=== PATIENT | male | born 1945 | race Caucasian/White ===

== ENCOUNTER 2016-12-14 17:09 | Inpatient (IN) ==
[2016-12-14] MEDS ORDERED: Mag Hydrox/Al Hydrox/Simeth 30 ML UDC PO PRN (20:25)
[2016-12-14] MEDS ORDERED: Bisacodyl 10 MG RECTAL SUPPOSITORY RC PRN (20:27)
[2016-12-14] MEDS ORDERED: traZODone 50 MG TABLET PO PRN (20:38)
[2016-12-14] MEDS ORDERED: Saline Nasal Spray 44 ML BOTTLE NS PRN (20:39)
[2016-12-14] MEDS ORDERED: Ondansetron ODT 4 MG TAB.RAPDIS PO PRN (20:43)
[2016-12-14] MEDS ORDERED: Isosorbide MONOnitrate (24 HR) 30 MG TAB.ER.24H PO SCH (21:00)
[2016-12-15] MEDS: *HR* Heparin 5,000 UNIT/ML VIAL SQ SCH ×4 (05:18→17:13)
[2016-12-15 06:14] LABS: Basophils % 0.6 %; Eosinophils # 0.3 K/mcL (0.0-0.6); Eosinophils % 5.8 %; Hematocrit 36.9 % (37.5-50.1); Hemoglobin 12.6 g/dL (12.9-16.9); Immature Granulocytes % 0.2 % (0-4); Lymphocytes # 2.3 K/mcL (0.6-4.6); Lymphocytes % 48.6 %; Mean Corpuscular HGB Conc 34.1 g/dL (31.6-35.5); Mean Corpuscular Hemoglobin 30.9 pg (28.0-33.3); Mean Corpuscular Volume 90.4 fL (83.0-100.0); Mean Platelet Volume 12.3 fL (9.4-12.4); Monocytes # 0.5 K/mcL (0.0-1.3); Monocytes % 11.5 %; Neutrophils # 1.6 K/mcL (1.6-8.9); Platelet Count 173 K/mcL (140-400); Red Blood Count 4.08 M/mcL (4.19-5.50); Segmented Neutrophils % 33.3 %
[2016-12-15 06:22] LABS: INR 1.2; Prothrombin Time 12.8 Seconds (9.4-12.1)
[2016-12-15 06:24] LABS: Activated Partial Thrombo Time 28.4 Seconds (26.0-36.0)
[2016-12-15 06:30] LABS: eGFR For African Americans > 60 (> 60); eGFR For Non-African Americans 52 (> 60)
[2016-12-15] MEDS: MOM Conc 10 ML UD.LIQ PO SCH (09:24)
[2016-12-15] MEDS: amLODIPine 5 MG TABLET PO SCH (09:25)
[2016-12-15] MEDS: Aspirin Enteric Coated 81 MG Tablet PO SCH (09:25)
[2016-12-15] MEDS: Multivit/Ca/Min/Fe/FA 1 TAB TABLET PO SCH (09:26)
--- NOTE | 2016-12-15 16:33 | Internal Med History&Physical ---
Date of Encounter: 12/15/16 Time of Encounter: 15:30 Assessment and Plan (1) CVA (cerebral vascular accident) Current visit: No Status: Acute Continue aspirin and Plavix with ongoing therapy. Qualifiers: CVA mechanism: unspecified Qualified Code(s): I63.9 - Cerebral infarction, unspecified (2) Essential hypertension Current visit: No Status: Chronic Continue amlodipine and isosorbide (3) Chronic kidney disease, stage 3 Current visit: No Status: Chronic We will monitor renal indices periodically. (4) Anemia Current visit: Yes Status: Acute We will monitor CBC periodically. Qualifiers: Anemia type: unspecified type Qualified Code(s): D64.9 - Anemia, unspecified Internal Medicine - H&P: HPI Chief complaint: Cerebellar CVA Admitted From: Home Plans for Post Hospital Care: Home History of present illness: Mr. Winter is a 71 year old male who was admitted to swing bed after a December 06 stay at [facility] for cerebellar CVA and bradycardia. He been hospitalized November 28 at [facility] [place] and diagnosed with left cerebellar infarct. He presented to [facility] with recurrent and worsening left-sided weakness, ataxia, vertigo, and nausea. He had MRA,MRI and TTE at [facility] [place]. 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 He was placed on aspirin Plavix and statin. Heart rate dropped in the 20s and he had LINQ placement 12/10/2016. Lexiscan 12/12/2016 was negative. Outpatient sleep studies were recommended. Neurologic history otherwise is negative for previous strokes or seizures. Past Med Surg Social Fam HX - Past Medical History Medical history: CVA, hyperlipidemia, hypertension, renal disease Psychiatric history: no psych history - Social History Smoking Status: Never smoker Smokeless Tobacco Status: No Alcohol use: none Drug use: none - Family History Father Living Status: Hx Family Cancer: Yes (prostate cancer) Internal Medicine - H&P: Meds Multivitamin [Multi-Day Vitamins] 1 each PO DAILY 11/28/16 [History] Ramipril [Altace] 5 mg PO DAILY 11/28/16 [History] Tamsulosin [Flomax] 0.4 mg PO DAILY 11/28/16 [History] Atorvastatin Calcium [Lipitor] 10 mg PO HS 12/06/16 [History] Aspirin Enteric Coated [Aspirin EC] 81 mg PO DAILY 12/14/16 [History] Maalox 30 ml PO Q4H 12/14/16 [History] traZODone [TraZODone] 50 mg PO DAILY 12/14/16 [History] Allergies No Known Allergies Allergy (Verified 11/28/16 10:41) All Systems PM: A 10-system review of systems was performed and is negative for pertinent findings except as documented above in the HPI. Review of systems: Gen.: He states his weight has been stable past few months Cardiovascular: He has a history of hypertension. He had bradycardia with LINQ placement at [facility] as per history of present illness. He denies heart failure DVT or pulmonary embolus Respiratory: He is a lifelong nonsmoker and has no known lung disease GI: Denies disorders of his liver gallbladder or exocrine pancreas : He has chronic kidney disease stage III and BPH. He denies other kidney or bladder disorders Neurologic: As per history of present illness Endocrine: He was diagnosed with DM 2 during his recent [facility] stay. Hemoglobin A1c was 6.9%. He remains diet controlled. He has hyperlipidemia. He had elevated TSH documented during his [facility] stay but free T4 and T3 were normal and he was not started on levothyroxine. Hematology/oncology: He was found to have anemia on blood work today. He denies internal malignancies Musk skeletal: He has DJD but no known gout or other bone joint or muscle disorders. - Constitutional Vitals: Temp Pulse Resp BP Pulse Ox 98.3 F 60 17 118/65 95 12/15/16 06:55 12/15/16 11:29 12/15/16 11:29 12/15/16 11:29 12/15/16 11:29 Exam: Gen.: He is a well-developed well-nourished male sitting in a chair in no acute distress HEENT: Head is atraumatic and normocephalic. Eyes: EOMI. There is no scleral icterus. Mouth: Mucosa is moist. Neck: Supple and nontender. There is no thyromegaly or adenopathy noted. Heart: Regular without murmurs gallops or ectopics Lungs: No wheezes or crackles are heard. Abdomen: Soft and nontender. No masses or guarding are noted. Extremities: There is no cyanosis edema or clubbing noted. Dorsalis pedis and posterior tibial pulses are 1-2 over 2 bilaterally. Neurologic: Mental status: He is talkative and a good historian. Cranial nerves : Smile is symmetric. Forehead wrinkles bilaterally. Tongue protrudes midline. EOMI. Motor: There is no pronator drift. Flexion and extension strength against resistance is symmetric and normal at the ankles and knees bilaterally. Rapid finger movements are intact and symmetric. Cerebellar: Finger to nose is intact bilaterally. Skin: Warm and dry. He has numerous flat warts on his feet bilaterally. Internal Med - H&P Results - Labs CBC & Chem 7: 12/15/16 05:43 12/15/16 05:43 Labs: Short CBC 12/15/16 Range/Units 05:43 WBC 4.7 (4.3-11.1) K/mcL Hgb 12.6 L (12.9-16.9) g/dL Hct 36.9 L (37.5-50.1) % Plt Count 173 (140-400) K/mcL Neutrophils # 1.6 (1.6-8.9) K/mcL BMP 12/15/16 05:43 Creatinine 1.36 H
[2016-12-16] MEDS: *HR* Enoxaparin 40 MG/0.4 ML SYRINGE SQ SCH (04:10)
[2016-12-16] MEDS: Aspirin Enteric Coated 81 MG Tablet PO SCH (10:00)
[2016-12-16] MEDS: Multivit/Ca/Min/Fe/FA 1 TAB TABLET PO SCH (10:00)
[2016-12-16] MEDS: amLODIPine 5 MG TABLET PO SCH (10:01)
[2016-12-16] MEDS: MOM Conc 10 ML UD.LIQ PO SCH (10:02)
--- NOTE | 2016-12-16 10:27 | Internal Med Progress Note ---
Date of Encounter: 12/16/16 Time of Encounter: 10:10 - Assessment and plan (1) CVA (cerebral vascular accident) Current Visit: No Status: Acute Assessment and plan: December 16. Continue aspirin, Plavix, and therapy Qualifiers: CVA mechanism: unspecified Qualified Code(s): I63.9 - Cerebral infarction, unspecified (2) Essential hypertension Current Visit: No Status: Chronic Assessment and plan: December 16. Continue amlodipine and isosorbide (3) Chronic kidney disease, stage 3 Current Visit: No Status: Chronic Assessment and plan: December 16. Will monitor renal indices as needed (4) Anemia Current Visit: Yes Status: Acute Assessment and plan: December 16. Will monitor CBC as needed Qualifiers: Anemia type: unspecified type Qualified Code(s): D64.9 - Anemia, unspecified - Subjective Interval history: December 16. He has no new complaints. He feels he is making good progress and stated he would like to go home as soon as possible. - Constitutional Vitals: Temp Pulse Resp BP Pulse Ox 98.3 F 61 16 118/64 95 12/16/16 06:35 12/16/16 06:35 12/16/16 06:35 12/16/16 06:35 12/16/16 06:35 Exam: He is sitting in a chair resting comfortably. He has no complaints. His affect is bright and cheerful. He had movement of his arms without tremor or obvious weakness. I reviewed his medications and lab results. Internal Medicine: Result - Labs CBC & Chem 7: 12/15/16 05:43 12/15/16 05:43 - ABG Interpretation ABG results: PT/INR, D-dimer PT 12.8 Seconds (9.4-12.1) H 12/15/16 05:43 Consult Discharge Plan - Plan Referrals: Carmelo Theodore MD [Primary Care Provider] - 1 week
[2016-12-17] MEDS: *HR* Enoxaparin 40 MG/0.4 ML SYRINGE SQ SCH (03:59)
[2016-12-17 06:35] VITALS: BP 149/75
[2016-12-17] MEDS: amLODIPine 5 MG TABLET PO SCH (08:49)
[2016-12-17] MEDS: Aspirin Enteric Coated 81 MG Tablet PO SCH (08:50)
[2016-12-17] MEDS: Multivit/Ca/Min/Fe/FA 1 TAB TABLET PO SCH (08:50)
--- NOTE | 2016-12-17 10:01 | Discharge Summary ---
Date of Encounter: 12/17/16 Time of Encounter: 09:45 - Discharge Diagnosis (1) CVA (cerebral vascular accident) Priority: Primary Status: Acute Qualifiers: CVA mechanism: unspecified Qualified Code(s): I63.9 - Cerebral infarction, unspecified (2) Essential hypertension Priority: Secondary Status: Chronic (3) Chronic kidney disease, stage 3 Priority: Secondary Status: Chronic (4) Anemia Priority: Secondary Status: Acute Qualifiers: Anemia type: unspecified type Qualified Code(s): D64.9 - Anemia, unspecified - Discharge Medications Prescriptions: Amlodipine Besylate 10 mg PO DAILY #30 tablet Clopidogrel [Plavix] 75 mg PO DAILY #30 tab Isosorbide DInitrate [Isordil] 30 mg PO BID #60 tab Home Medications: Multivitamin [Multi-Day Vitamins] 1 each PO DAILY 11/28/16 [History] Ramipril [Altace] 5 mg PO DAILY 11/28/16 [History] Tamsulosin [Flomax] 0.4 mg PO DAILY 11/28/16 [History] Atorvastatin Calcium [Lipitor] 10 mg PO HS 12/06/16 [History] Maalox 30 ml PO Q4H 12/14/16 [History] Amlodipine Besylate 10 mg PO DAILY #30 tablet 12/17/16 [Rx] Aspirin Enteric Coated [Aspirin EC] 81 mg PO DAILY 12/17/16 [Rx] Clopidogrel [Plavix] 75 mg PO DAILY #30 tab 12/17/16 [Rx] Isosorbide DInitrate [Isordil] 30 mg PO BID #60 tab 12/17/16 [Rx] Allergies/Adverse Reactions: Allergies No Known Allergies Allergy (Verified 11/28/16 10:41) Date of admission: 12/14/16 18:36 Primary care physician: aCrmelo Theodore MD Consults: 12/14/16 20:47 Consult to Physical Therapy [CONS] Routine Comment: Evaluate, develop and implement POC Reason for Consult: Evaluate, develop and implement POC 12/14/16 20:48 Consult to Occupational Therapy [CONS] Routine Comment: Evaluate, develop and implement POC Reason for Consult: Evaluate, develop and implement POC 12/14/16 21:57 Consult to Electric Meter Installer Helper [CONS] Routine Reason for SW Consult: Swing bed admission. - Patient Status Disposition: Home, Self-Care Functional capacity at discharge: uses cane/walker Overall status at discharge: patient is progressing back to baseline - Discharge Instructions Follow Up With: Carmelo Theodore MD [Primary Care Provider] - 1 week - Diet and Activity Activity: as per physical therapy Diet: advance to your usual diet Hospital course: Mr. Winter is a 71 year old male who was admitted to swing bed after a December 06 stay at [facility] for cerebellar CVA and bradycardia. He been hospitalized November 28 at [facility] and diagnosed with left cerebellar infarct. He presented to [facility] with recurrent and worsening left-sided weakness, ataxia, vertigo, and nausea. He had MRA,MRI and TTE at [facility]. During his [facility] stay he had contrast angiogram study which showed 95-99% stenosis of the right vertebral artery but adequate collateral flow. He was placed on aspirin Plavix and statin. Initial orders written by the discharging physicians at [facility]. I saw him on December 15 and performed a sling that history and physical. He had PT and OT evaluations with ongoing intervention. He made satisfactory progress. On December 17 he felt he was stable for discharge home. He will follow with his PCP and/ or neurologist within 1 week. He will continue on amlodipine, isosorbide, Plavix, aspirin, and his previous home medications of Flomax, statin, and Ramapril. - Time Spent with Patient Total time spent providing and/or coordinating discharge services: - Constitutional Vitals: Temp Pulse Resp BP Pulse Ox 98.2 F 64 16 149/75 96 12/17/16 06:33 12/17/16 06:33 12/17/16 06:33 12/17/16 06:33 12/17/16 08:52
== END 2016-12-17 16:30 | disposition home or self-care (01) | DRG 57 ==
LOC: INPPIK 18:36
PROVIDERS: ADMIT Internal Medicine; ATTEND Internal Medicine